=== PATIENT | male | born 1960 | race Caucasian/White ===

== ENCOUNTER 2024-05-05 16:30 | Emergency (ER) | payer SELFPAY ==
--- NOTE | 2024-05-05 17:40 | ECG_ITS ---
Test Date: 2024-05-05 16:47:27 Measurements Intervals [place] Rate: 103 P: 31 MN: 154 QRS: 53 QRSD: 122 T: 49 QT: 325 QTc: 426 Interpretive Statements SINUS TACHYCARDIA LEFT VENTRICULAR HYPERTROPHY AND ST-T CHANGE [VOLTAGE CRITERIA PLUS ST/T ABNORMALITY] CONSIDER INFEROLATERAL ISCHEMIA ABNORMAL ECG No previous ECG available for comparison Electronically Signed On 05-06-2024 15:33:35 NAME PLATE STAMPER by Uche Bobby M.D.
--- NOTE | 2024-05-05 17:42 | ECG_ITS ---
Test Date: 2024-05-05 17:25:24 Measurements Intervals [place] Rate: 89 P: 46 TX: 188 QRS: 59 QRSD: 146 T: 256 QT: 381 QTc: 466 Interpretive Statements SINUS RHYTHM INTRAVENTRICULAR CONDUCTION DELAY, INCOMPLETE LEFT BUNDLE BRANCH BLOCK ABNORMAL ECG COMPARED TO EARLIER TODAY HEART RATE IS SLOWER AND SLIGHTLY PROLONGED QRS DURATION No previous ECG available for comparison Electronically Signed On 05-06-2024 15:34:43 PRECIPITATOR SUPERVISOR by Uche Bobby M.D.
[2024-05-05 17:57] VITALS: PULSE 42; RESP 14; TEMP 36.3
[2024-05-05 18:01] LABS: Basophils Percent Auto 0.7 % (0.2-1.2); Hematocrit 22.3 % (42.0-52.0); Immature Granulocyte Absolute 0.25 K/mm3 (0.00-0.031); Immature Granulocyte Percent A 8.7 % (0-0.5); Immature Platelet Fraction Pct 1.2 % (0.9-11.2); Lymphocytes Absolute Auto 0.66 K/mm3 (0.9-3.2); Mean Corpuscular Hemoglobin 30.7 pg (26-34); Mean Corpuscular Volume 102.3 fl (80-100); Mean Platelet Volume 10.5 fl (7.4-10.4); Monocytes Absolute Auto 0.1 K/mm3 (0.1-0.6); Monocytes Percent Auto 3.5 % (2.6-8.5); Neutrophils Absolute Auto 1.8 K/mm3 (1.3-6.7); Neutrophils Percent Auto 64.1 % (45.5-73.1); Nucleated Red Blood Cells Perc 3.1 % (0.0-0.2); Platelet Count Result 29 k/mm3 (150-375); Red Blood Count 2.18 M/mm3 (4.6-6.20); White Blood Count 2.9 K/mm3 (4.5-10.0)
--- NOTE | 2024-05-05 18:09 | ED_ITS ---
HPI - General Adult General Chief complaint: Cardiac Arrest/CPR Stated complaint: cardiac arrest Time Seen by Provider: 05/05/24 16:48 History of Present Illness HPI narrative: [age] old male presents emergency department for full arrest. EMS was called because the patient was feeling faint, when EMS arrived the patient was lying between the bed and the wall and was pulseless. CPR was started. Prior to arrival the patient did receive 6 rounds of epi. Review of Systems 2 Review of Systems: ROS unobtainable: Yes unobtainable due to mental status Exam 2 Narrative: APPEARANCE: Fall right HEAD: normocephalic, atraumatic. EYES: 6 NOSE: Normal no drainage EARS:TMS clear with good light reflex. THROAT: Pharynx clear, no exudate. NECK: Supple. No adenopathy, no masses. RESPIRATORY: Intubated breath CARDIOVASCULAR: PA and some sinus tachycardia ABDOMINAL: Soft, nontender, nondistended, normal bowel sounds MUSCULOSKELETAL: Moves all extremities. Strength/ROM intact, No edema, No calf tenderness. NEURO: Unresponsive SKIN: Mottled and sign-out Course Vital Signs Vital signs: Vital Signs Oxygen Delivery Bag Valve Mask 05/05/24 17:34 Temperature 97.4 F L 05/05/24 17:57 Pulse Rate 42 L 05/05/24 17:57 Respiratory Rate 14 05/05/24 17:57 Oxygen Delivery Bag Valve Mask 05/05/24 17:34 Procedures Central Line Placement Right Femoral: Performed Emergently - Given emergent patient condition, temporal constraints may have precluded informed consent.: Yes Time Out Performed: No Patient Placed on Monitor/Pulse Ox: Yes Emergently Placed, Full Sterile: prep not done Technique: US-Guided Ultrasound Used for Placement: Yes Central Line Lumen Inserted: triple Post Procedure: sutured in place, good blood return, all ports aspirated, flushed, capped and sterile dressing applied Patient Tolerated Procedure: no complications Complications: none Medical Decision Making MDM Narrative Medical decision making narrative: [age] old male presents emergency department full arrest. Patient had multiple rounds chest compressions and did have brief Rosc. Central line was started and patient was started on peripheral epinephrine and norepinephrine along with IV fluids. Patient's blood pressure did continue to drop and patient was no longer responding to resuscitation. Patient did have carotid pulses for brief period of time during resuscitation but patient never had bilateral femoral pulses. Patient was then PEA and time of was called at 6:02 p.m. Vital Signs Vital Signs: Vital Signs Oxygen Delivery Bag Valve Mask 05/05/24 17:34 Temperature 97.4 F L 05/05/24 17:57 Pulse Rate 42 L 05/05/24 17:57 Respiratory Rate 14 05/05/24 17:57 Oxygen Delivery Bag Valve Mask 05/05/24 17:34 Lab Data 05/05/24 17:45 05/05/24 17:45 Labs: Lab Results 05/05/24 Range/Units 17:45 WBC 2.9 L (4.5-10.0) K/mm3 RBC 2.18 L (4.6-6.20) M/mm3 Hgb 6.7 L* (14.0-18.0) g/dL Hct 22.3 L (42.0-52.0) % MCV 102.3 H (80-100) fl MCH 30.7 (26-34) pg MCHC 30.0 L (32-36) g/dl RDW 14.0 (11.5-14.5) % Plt Count 29 L (150-375) k/mm3 MPV 10.5 H (7.4-10.4) fl Immature Gran % (Auto) 8.7 H (0-0.5) % Neut % (Auto) 64.1 (45.5-73.1) % Lymph % (Auto) 23.0 (18.3-44.2) % [place] % (Auto) 3.5 (2.6-8.5) % Eos % (Auto) 0.0 (0-4.4) % Baso % (Auto) 0.7 (0.2-1.2) % Lymph # (Auto) 0.66 L (0.9-3.2) K/mm3 [place] # (Auto) 0.1 (0.1-0.6) K/mm3 Eos # (Auto) 0.0 (0-0.3) K/mm3 Baso # (Auto) 0.0 (0.0-0.1) K/mm3 Abs Immat Gran (auto) 0.25 H (0.00-0.031) K/mm3 Absolute Neuts (auto) 1.8 (1.3-6.7) K/mm3 Absolute Nucleated RBC 0.090 H (0.0-0.012) K/mm3 Band Neutrophils % 0 (0-6) % Nucleated RBC % 3.1 H (0.0-0.2) % Platelet Estimate Decreased (Adequate) % Immature Plt Fraction 1.2 (0.9-11.2) % Hypochromasia 1+ Schistocytes None seen PT 66.2 H (11.1-14.7) Seconds INR 7.9 H* APTT > 200.0 H* (22.3-36.8) Seconds Sodium 143 (137-145) mmol/L Potassium 4.9 (3.4-5.0) mmol/L Chloride 109 H (98-107) mmol/L Carbon Dioxide 10 L (22-30) mmol/L Anion Gap 24 H (4-12) mmol/L BUN 16 (9-20) mg/dL Creatinine 1.18 (0.7-1.3) mg/dL Estim Creat Clear Calc Not Reportable Estimated GFR > 60 (59 - ) Glucose 155 H (65-110) mg/dL Calcium 7.0 L (8.4-10.2) mg/dL Total Bilirubin 0.7 (0.2-1.3) mg/dL AST 223 H (17-59) U/L ALT 172 H (6-50) U/L Alkaline Phosphatase 47 (38-126) U/L Troponin I 0.108 H* (0.000-0.034) ng/mL Total Protein 4.0 L (6.3-8.2) g/dL Albumin 2.0 L (3.5-5.1) g/dL Triglycerides 149 (<150) mg/dL Cholesterol 70 (0-200) mg/dL LDL Cholesterol Direct < 30 mg/dL HDL Direct 31 mg/dL Blood Type A Positive Antibody Screen Negative Critical Care Time Critical Care Time Critical Care Time: Yes Total Critical Care Time: 75 Discharge Plan Discharge Clinical Impression: Cardiac arrest Patient Disposition: Condition: Patient Language: Filipino
[2024-05-05 18:12] LABS: Prothrombin Time 66.2 Seconds (11.1-14.7)
[2024-05-05 18:17] LABS: Alkaline Phosphatase 47 U/L (38-126); Anion Gap 24 mmol/L (4-12); Aspartate Amino Transferase 223 U/L (17-59); Bilirubin,Total 0.7 mg/dL (0.2-1.3); Blood Urea Nitrogen 16 mg/dL (9-20); Carbon Dioxide 10 mmol/L (22-30); Chloride 109 mmol/L (98-107); Cholesterol 70 mg/dL (0-200); Estimated Glomerular Filt Rate > 60; Glucose 155 mg/dL (65-110); HDL Direct 31 mg/dL; Potassium 4.9 mmol/L (3.4-5.0); Sodium 143 mmol/L (137-145); Triglycerides 149 mg/dL (<150)
[2024-05-05 18:18] LABS: Alanine Aminotransferase 172 U/L (6-50); Hemoglobin 6.7 g/dL (14.0-18.0)
[2024-05-05 18:19] LABS: Platelet Estimate Decreased (Adequate)
[2024-05-05 18:20] LABS: Hypochromasia 1+; Schistocytes None Seen
[2024-05-05 18:23] LABS: LDL Cholesterol Direct < 30 mg/dL
[2024-05-05 18:35] LABS: Band Neutrophils Percent 0 % (0-6)
[2024-05-05 18:50] LABS: INR 7.9; Partial Thromboplastin Time > 200.0 Seconds (22.3-36.8)
[2024-05-09 14:44] LABS: Troponin I 0.108 ng/mL (0.000-0.034)
== END 2024-05-05 19:30 | disposition expired ==
LOC: ANHED 19:29
PROVIDERS: Emergency Provider Emergency Medicine
DX: I46.9 Cardiac arrest, cause unspecified (principal); R00.0 Tachycardia, unspecified; I51.7 Cardiomegaly; I45.9 Conduction disorder, unspecified; I44.7 Left bundle-branch block, unspecified
CPT/HCPCS: 36415; 36556; 80053; 80061; 84484; 85025; 85055; 85610; 85730; 86850; 86900; 86901; 92950; 93005; 96365; 96375; 99285; C1751; J0171; J0282; J2250; J7030; J7060; J7120